=== PATIENT | female | born 1955 | race Hispanic/Latino ===

== ENCOUNTER 2017-04-11 23:35 | Emergency (ER) | payer OTHER, MEDICARE ==
[~2017-04-11 23:35] MED LIST: ALBU0.63 IH; ASPI-1012 PO; ATOR10TA69 PO; CALC1TAB2 PO; ESCI20TA PO; FLUT16H NASAL; HYDR-309 PO; INSU100I21 SQ; LISI1TAB13 PO; LORA10TA7 PO; ONDA4TAB4 PO; PANT40TA25 PO; PSYL0.5210 PO; SITA100T12 PO
[2017-04-12] MEDS ORDERED: KETOROLAC TROMETHAMINE 60 MG/2 ML VIAL ONE (01:10)
== END 2017-04-12 01:54 | disposition home or self-care (01) ==
LOC: EDH 23:35
DX: G89.29 Other chronic pain (principal); M79.89 Other specified soft tissue disorders; M19.90 Unspecified osteoarthritis, unspecified site; E11.9 Type 2 diabetes mellitus without complications; I10 Essential (primary) hypertension; E78.5 Hyperlipidemia, unspecified; J44.9 Chronic obstructive pulmonary disease, unspecified; Z88.6 Allergy status to analgesic agent
CPT/HCPCS: 96372; 99283; J1885

== ENCOUNTER → 2017-07-17 | Outpatient (CLI) | payer OTHER, MEDICARE | END | disposition home or self-care (01) | LOC: RAH 09:46 | PROVIDERS: ATTEND Family Medicine | DX: Z12.31 Encounter for screening mammogram for malignant neoplasm of breast (principal) | CPT/HCPCS: 77067 ==

== ENCOUNTER 2018-09-17 23:38 | Emergency (ER) | payer OTHER, MEDICARE ==
[~2018-09-17 23:38] MED LIST changes: -HYDR-309 PO; +HYDR-4457 PO
[2018-09-18 00:03] LABS: BASOPHILS % (AUTO) 0.9 % (0.0-5.0); EOSINOPHILS % (AUTO) 4.3 % (0.0-8.0); HEMATOCRIT 43.1 % (36-48); MEAN CORPUSCULAR HEMOGLOBIN 29.9 pg (27.0-33.0); MEAN CORPUSCULAR VOLUME 88.2 fL (79-99); NEUTROPHILS % (AUTO) 58.8 % (40.0-77.0); PLATELET COUNT (AUTO) 183 K/uL (130-400); RED BLOOD CELL COUNT(AUTO) 4.89 MIL/uL (4.00-5.50); RED CELL DISTRIBUTION WIDTH 13.4 % (11.0-15.5); WHITE BLOOD COUNT (AUTO) 9.6 K/uL (4.8-10.8)
[2018-09-18 00:18] LABS: CREATININE 1.2 mg/dL (0.5-1.5); POTASSIUM 4.5 mmol/L (3.5-5.1)
[2018-09-18 00:22] LABS: ALBUMIN 3.2 g/dL (3.5-5.0); BILIRUBIN,TOTAL 0.4 mg/dL (0.2-1.0)
[2018-09-18 00:44] LABS: B-TYPE NATRIURETIC PEPTIDE 30 pg/mL (0-100)
[2018-09-18] MEDS ORDERED: IPRATROPIUM/ALBUTEROL SULFATE 3 ML SOLUTION IH ONE (00:54)
[2018-09-18] MEDS ORDERED: SODIUM CHLORIDE 0.9% 1000ML 1,000 ML IV ONE (01:53)
[2018-09-18] MEDS ORDERED: INSULIN HUMULIN R 100 UNIT/ML 3ML ONE (01:54)
[2018-09-18] MEDS ORDERED: IOHEXOL 350 MG/ML 100ML INFUS..BTL IV ONE (01:58)
== END 2018-09-18 06:30 | disposition home or self-care (01) ==
LOC: EDH 23:38
DX: R06.00 Dyspnea, unspecified (principal); R06.02 Shortness of breath; R07.9 Chest pain, unspecified; R19.7 Diarrhea, unspecified; J44.9 Chronic obstructive pulmonary disease, unspecified; E11.9 Type 2 diabetes mellitus without complications; I10 Essential (primary) hypertension; E78.5 Hyperlipidemia, unspecified; Z79.899 Other long term (current) drug therapy; Z88.6 Allergy status to analgesic agent; Z88.8 Allergy status to other drugs, medicaments and biological substances
CPT/HCPCS: 36415; 71046; 71275; 80053; 82550; 82948; 83880; 84484 ×2; 85025; 85378; 93005 ×2; 94640; 96361; 96374; 99285; J1815; J7030; Q9967

== ENCOUNTER → 2019-02-27 | Outpatient (CLI) | payer OTHER, MEDICARE ==
[~2019-02-27] MED LIST changes: -LISI1TAB13 PO; +LISI1TAB29 PO
== END | disposition home or self-care (01) ==
LOC: RAH 13:26
PROVIDERS: ATTEND Family Medicine
DX: Z12.31 Encounter for screening mammogram for malignant neoplasm of breast (principal)
CPT/HCPCS: 77067

== ENCOUNTER → 2019-04-22 | Outpatient (CLI) | payer OTHER, MEDICARE ==
[~2019-04-22] MED LIST changes: +BUSP7.5T7 PO; +DULO30CA52 PO; +FAMO20TA8 PO; +GABA-529 PO; +GLIM2TAB30 PO; +LEVO5TAB13 PO; +MONT10TA26 PO
[2019-04-22 14:15] LABS: BASOPHILS % (AUTO) 0.5 % (0.0-5.0); EOSINOPHILS % (AUTO) 4.9 % (0.0-8.0); HEMATOCRIT 46.4 % (36-48); LYMPHOCYTES % (AUTO) 27.7 % (21.0-51.0); MEAN CORPUSCULAR HEMOGLOBIN 28.6 pg (27.0-33.0); MEAN CORPUSCULAR HGB CONC 32.5 g/dL (32.0-36.0); MEAN CORPUSCULAR VOLUME 87.9 fL (79-99); MONOCYTES % (AUTO) 4.6 % (3.0-13.0); NEUTROPHILS % (AUTO) 61.9 % (40.0-77.0); PLATELET COUNT (AUTO) 192 K/uL (130-400); RED BLOOD CELL COUNT(AUTO) 5.28 MIL/uL (4.00-5.50); RED CELL DISTRIBUTION WIDTH 12.9 % (11.0-15.5); WHITE BLOOD COUNT (AUTO) 9.1 K/uL (4.8-10.8)
[2019-04-22 14:33] LABS: INR 1.07 (0.85-1.15); PROTHROMBIN TIME 11.2 SEC (9.6-11.6)
[2019-04-22 15:07] LABS: ALBUMIN 3.6 g/dL (3.5-5.0); BILIRUBIN,TOTAL 0.6 mg/dL (0.2-1.0); POTASSIUM 4.3 mmol/L (3.5-5.1); TOTAL PROTEIN, SERUM 8.8 g/dL (6.0-8.3)
[2019-04-23 08:12] LABS: HEPATITIS B CORE IGM Negative (Negative)
[2019-04-23 15:10] LABS: ALPHA-1-ANTITRYPSIN 155 mg/dL (101-187)
== END | disposition home or self-care (01) ==
LOC: LAB 13:28
PROVIDERS: ATTEND Internal Medicine
DX: R94.5 Abnormal results of liver function studies (principal); R93.2 Abnormal findings on diagnostic imaging of liver and biliary tract; E11.9 Type 2 diabetes mellitus without complications
CPT/HCPCS: 36415; 80053; 82103; 82172; 82247; 82390; 82977; 83010; 83516; 83540; 83550; 83883; 84460; 85025; 85610; 86038; 86215; 86235; 86255; 86704; 86705; 86706; 86708; 87520

== ENCOUNTER 2019-04-26 05:57 | Day surgery (SDC) | payer OTHER, MEDICARE ==
[~2019-04-26] VITALS: Ht 162.6 cm; Wt 129.7 kg
[~2019-04-26 05:57] MED LIST changes: -BUSP7.5T7 PO; -DULO30CA52 PO; -FAMO20TA8 PO; -GABA-529 PO; -GLIM2TAB30 PO; -LEVO5TAB13 PO; -MONT10TA26 PO
[2019-04-26] MEDS ORDERED: SODIUM CHLORIDE 0.9% 1000ML 1,000 ML IV ONE (06:20)
[2019-04-26] MEDS ORDERED: PROPOFOL 10 MG/ML 20ML VIAL IV ONE (06:58)
[2019-04-26 07:42] VITALS: BP 133/79
[2019-04-26] MEDS ORDERED: GABA-529 PO (08:08)
[2019-04-26] MEDS ORDERED: BUSP7.5T7 PO (08:08)
[2019-04-26] MEDS ORDERED: DULO30CA52 PO (08:08)
[2019-04-26] MEDS ORDERED: FAMO20TA8 PO (08:08)
[2019-04-26] MEDS ORDERED: PANT40TA25 PO (08:08)
[2019-04-26] MEDS ORDERED: MONT10TA26 PO (08:08)
[2019-04-26] MEDS ORDERED: GLIM2TAB30 PO (08:08)
[2019-04-26] MEDS ORDERED: LEVO5TAB13 PO (08:08)
[2019-04-26 08:50] VITALS: BP 118/65
[2019-04-26 08:55] VITALS: BP 131/72
[2019-04-26 09:00] VITALS: BP 134/71
[2019-04-26 09:05] VITALS: BP 129/82
== END 2019-04-26 09:10 | disposition home or self-care (01) ==
LOC: DAH 05:57 → ENDO 05:57
PROVIDERS: ATTEND Internal Medicine
DX: R19.5 Other fecal abnormalities (principal); D12.3 Benign neoplasm of transverse colon; D12.2 Benign neoplasm of ascending colon; K64.0 First degree hemorrhoids; K57.30 Diverticulosis of large intestine without perforation or abscess without bleeding; F32.9 Major depressive disorder, single episode, unspecified; I10 Essential (primary) hypertension; E11.9 Type 2 diabetes mellitus without complications; F41.9 Anxiety disorder, unspecified; E66.01 Morbid (severe) obesity due to excess calories; Z99.89 Dependence on other enabling machines and devices; Z68.42 Body mass index [BMI] 45.0-49.9, adult; Z79.82 Long term (current) use of aspirin; Z79.899 Other long term (current) drug therapy; E78.5 Hyperlipidemia, unspecified; Z96.659 Presence of unspecified artificial knee joint; Z90.49 Acquired absence of other specified parts of digestive tract; Z98.51 Tubal ligation status; Z98.890 Other specified postprocedural states
CPT/HCPCS: 45380; 82948 ×2; 88305; A4215; A4221; A4222; A4223; A4606; A4615; A4663; J2704; J7030

== ENCOUNTER 2021-04-18 16:24 | Emergency (ER) | payer OTHER, MEDICARE ==
[~2021-04-18] VITALS: Ht 160 cm; Wt 124.7 kg
[~2021-04-18 16:24] MED LIST changes: -ALBU0.63 IH; +BUSP7.5T7 PO; -CALC1TAB2 PO; +DULO30CA52 PO; +FAMO20TA8 PO; -FLUT16H NASAL; +GABA-529 PO; +GLIM2TAB30 PO; -HYDR-4457 PO; +LEVO5TAB13 PO; -LISI1TAB29 PO; +LISI1TAB53 PO; +MONT-39 PO; -ONDA4TAB4 PO; -PANT40TA25 PO; +PANT40TA54 PO; -PSYL0.5210 PO
[2021-04-18 16:49] LABS: BASOPHILS % (AUTO) 0.3 % (0.0-5.0); EOSINOPHILS % (AUTO) 0.3 % (0.0-8.0); HEMATOCRIT 44.1 % (36-48); LYMPHOCYTES % (AUTO) 11.8 % (21.0-51.0); MEAN CORPUSCULAR HEMOGLOBIN 28.2 pg (27.0-33.0); MEAN CORPUSCULAR HGB CONC 33.3 g/dL (32.0-36.0); MEAN CORPUSCULAR VOLUME 84.6 fL (79-99); MONOCYTES % (AUTO) 3.7 % (3.0-13.0); NEUTROPHILS % (AUTO) 83.7 % (40.0-77.0); PLATELET COUNT (AUTO) 141 K/uL (130-400); RED BLOOD CELL COUNT(AUTO) 5.21 MIL/uL (4.00-5.50); RED CELL DISTRIBUTION WIDTH 13.7 % (11.0-15.5)
[2021-04-18 16:57] LABS: CREATININE 0.6 mg/dL (0.5-1.5); POTASSIUM 4.4 mmol/L (3.5-5.1)
[2021-04-18] MEDS ORDERED: 0.9%NACL 1000ML 1,000 ML IV ONE (17:00)
[2021-04-18] MEDS ORDERED: KETOROLAC 15MG/ML VIAL (15MG/ML) IV ONE (17:00)
[2021-04-18] MEDS ORDERED: ONDANSETRON 4MG INJ IVP ONE (17:00)
[2021-04-18 17:02] LABS: ALBUMIN 3.5 g/dL (3.5-5.0); BILIRUBIN,TOTAL 0.9 mg/dL (0.2-1.0); TOTAL PROTEIN, SERUM 8.1 g/dL (6.0-8.3)
[2021-04-18 17:42] LABS: APPEARANCE,URINE Clear (CLEAR); BILIRUBIN,URINE Negative (NEGATIVE); COLOR,URINE Yellow (YELLOW); GLUCOSE, URINE (UA) 250 mg/dL (NEGATIVE); KETONES,URINE 15 mg/dL (NEGATIVE); LEUKOCYTE ESTERASE ,URINE Negative (NEGATIVE); NITRATE,URINE Negative (NEGATIVE); OCCULT BLOOD,URINE Small (NEGATIVE); PH,URINE 6.5 (5.0-8.0); PROTEIN,URINE >=1000 mg/dL (NEGATIVE)
[2021-04-18 18:18] LABS: BACTERIA,URINE Moderate /HPF (None Seen); SQUAMOUS EPITHELIAL CELL,UR Few /HPF (0-2)
[2021-04-18 18:19] LABS: HYALINE CASTS, URINE 0-1 /LPF (0-1 /LPF); MUCUS,URINE Rare LPF (None Seen)
[2021-04-18] MEDS ORDERED: ACET1TAB25 PO (18:42)
[2021-04-18] MEDS ORDERED: ONDA4TAB10 PO (18:42)
[2021-04-18 19:14] VITALS: BP 175/78
== END 2021-04-18 19:39 | disposition home or self-care (01) ==
LOC: EDH 16:24
DX: U07.1 COVID-19 (principal); R51.9 Headache, unspecified; E11.9 Type 2 diabetes mellitus without complications; E78.00 Pure hypercholesterolemia, unspecified; I11.9 Hypertensive heart disease without heart failure; J45.909 Unspecified asthma, uncomplicated; Z88.5 Allergy status to narcotic agent; Z88.8 Allergy status to other drugs, medicaments and biological substances; Z79.899 Other long term (current) drug therapy; Z79.82 Long term (current) use of aspirin; Z79.4 Long term (current) use of insulin; Z79.1 Long term (current) use of non-steroidal anti-inflammatories (NSAID)
CPT/HCPCS: 36415; 70450; 80053; 81001; 84484; 85025; 87077; 87088; 87186; 87635; 93005; 96361 ×2; 96374; 96375; 99285; C9803; J1885; J2405; J7030

== ENCOUNTER 2021-08-28 10:42 | Emergency (ER) | payer OTHER, MEDICARE ==
[~2021-08-28] VITALS: Ht 157.5 cm; Wt 121.6 kg
[~2021-08-28 10:42] MED LIST changes: +ACET-2079 PO; +ONDA4TAB10 PO
[2021-08-28 12:23] VITALS: BP 129/87
[2021-08-28] MEDS ORDERED: HYD25 PO (12:26)
[2021-08-28] MEDS ORDERED: PERM60CR4 TP (12:26)
[2021-08-28] MEDS ORDERED: HYDROXYZINE 10 MG TABLET PO SCH (12:30)
[2021-08-28] MEDS ORDERED: PERMETHRIN CREAM 5% 60GM TUBE TP SCH (12:30)
== END 2021-08-28 13:00 | disposition home or self-care (01) ==
LOC: EDH 10:42
DX: L29.9 Pruritus, unspecified (principal); E11.9 Type 2 diabetes mellitus without complications; E78.00 Pure hypercholesterolemia, unspecified; I10 Essential (primary) hypertension; J45.909 Unspecified asthma, uncomplicated; Z79.4 Long term (current) use of insulin; Z79.82 Long term (current) use of aspirin; Z79.899 Other long term (current) drug therapy; Z88.5 Allergy status to narcotic agent; Z88.8 Allergy status to other drugs, medicaments and biological substances

== ENCOUNTER 2022-08-14 19:39 | Emergency (ER) | payer OTHER ==
[~2022-08-14] VITALS: Ht 160 cm; Wt 115.2 kg
[~2022-08-14 19:39] MED LIST changes: +HYD25 PO; -INSU100I21 SQ; +INSU100I22 SQ; +PERM60CR4 TP
[2022-08-15] MEDS ORDERED: IPRATROPIUM/ALBUTEROL SULFATE 3 ML SOLUTION IH ONE (02:00)
[2022-08-15] MEDS ORDERED: ALBU90AE2 IH (03:12)
[2022-08-15] MEDS ORDERED: BUDE90AE IH (03:12)
[2022-08-15] MEDS ORDERED: CEFU500T67 PO (03:12)
[2022-08-15 03:14] VITALS: BP 135/74
== END 2022-08-15 03:44 | disposition home or self-care (01) ==
LOC: EDH 19:39
DX: J20.9 Acute bronchitis, unspecified (principal); E78.00 Pure hypercholesterolemia, unspecified; I10 Essential (primary) hypertension; E11.9 Type 2 diabetes mellitus without complications; J44.9 Chronic obstructive pulmonary disease, unspecified; Z79.4 Long term (current) use of insulin; Z79.82 Long term (current) use of aspirin; Z79.84 Long term (current) use of oral hypoglycemic drugs; Z79.899 Other long term (current) drug therapy; Z88.5 Allergy status to narcotic agent; Z88.8 Allergy status to other drugs, medicaments and biological substances; Z20.822 Contact with and (suspected) exposure to COVID-19
CPT/HCPCS: 99284; 87635; 87880; 87804 ×2; 71045; 94640; C9803

== ENCOUNTER → 2024-06-27 | Outpatient (CLI) | payer OTHER ==
[~2024-06-27] MED LIST changes: +ALBU90AE3 IH; +BUDE90AE3 IH; +CEFU500T67 PO; +ONDA-243 PO; -ONDA4TAB10 PO
--- NOTE | 2024-06-27 14:47 | HMCIMG ---
CT HEAD/BRAIN W/O CONTRAST HISTORY: Head injury COMPARISON: None TECHNIQUE: Multiple sequential axial images of the head were obtained from the base of the skull through vertex. Patient was not given contrast through intravenous route. FINDINGS: The ventricles and extraventricular CSF spaces are dilated consistent with cerebral atrophy. Nonspecific white matter changes seen. There is no midline shift, mass effect or herniation. No acute intracranial bleed is seen. There are mild bilateral ethmoid and maxillary sinusitis. Mucoperiosteal thickening. IMPRESSION: 1. No acute intracranial bleed is seen. 2. Atrophy with white matter changes. CT was performed with one or more following dose reduction techniques: automated exposure control, adjustment of the mA and kv according to patient's size, or use of a iterative reconstruction technique.
== END | disposition home or self-care (01) ==
LOC: RAH 12:52
PROVIDERS: ATTEND Family Medicine
DX: S09.90XA Unspecified injury of head, initial encounter (principal); G31.89 Other specified degenerative diseases of nervous system; R90.82 White matter disease, unspecified; J32.0 Chronic maxillary sinusitis; M89.38 Hypertrophy of bone, other site; X58.XXXA Exposure to other specified factors, initial encounter; Y93.89 Activity, other specified; Y92.89 Other specified places as the place of occurrence of the external cause; Y99.8 Other external cause status
CPT/HCPCS: 70450